=== PATIENT | male | born 1995 | race Two or more races ===

== ENCOUNTER 2020-06-21 15:10 | Emergency (ER) | payer MEDICAID, OTHER ==
[~2020-06-21] VITALS: Ht 175.3 cm; Wt 83.9 kg
[2020-06-21 16:09] VITALS: BP 124/72
== END 2020-06-21 16:58 | disposition home or self-care (01) ==
LOC: ER 15:10
DX: L08.9 Local infection of the skin and subcutaneous tissue, unspecified (principal); L81.8 Other specified disorders of pigmentation

== ENCOUNTER 2020-09-01 04:21 | Inpatient (IN) | payer MEDICAID ==
[~2020-09-01] VITALS: Ht 172.7 cm; Wt 84.2 kg
[2020-09-01 05:23] LABS: Urine Amorphous Crystal FEW /hpf (None Seen); Urine Bacteria NONE SEEN /hpf (None Seen); Urine Blood Negative /uL (Negative); Urine Specific Gravity 1.022 (1.001-1.035); Urine WBC <1 /hpf (0 - 3)
[2020-09-01 07:47] LABS: Basophils # (auto) 0.1 10 ^3/uL (0-0.2); Basophils % (auto) 0.5 % (0.0-2.0); Eosinophils # (auto) 0 10 ^3/uL (0-0.8); Eosinophils % (auto) 0.3 % (0.0-7.0); Hematocrit 43.8 % (41.0-53.0); Lymphocytes # (auto) 1.6 10 ^3/uL (0.4-5.4); Lymphocytes % (auto) 9.3 % (10.0-50.0); Mean Corpuscular Hgb Conc. 34.2 g/dL (32.0-36.0); Mean Corpuscular Volume 87.6 fL (80.0-100.0); Monocytes # (auto) 1.2 10 ^3/uL (0-1.3); Monocytes % (auto) 7.2 % (0.0-12.0); Neutrophils # (auto) 13.9 10 ^3/uL (1.6-8.6); Neutrophils % (auto) 82.7 % (37.0-80.0); Nucleated Red Blood Cells % 0.1 %; Red Cell Distribution Width 12.8 % (11.8-14.3); White Blood Cell 16.8 10^3/uL (4.4-10.8)
[2020-09-01 08:07] LABS: Albumin 3.7 g/dL (3.4-5.0); BUN/Creatinine Ratio 19.5; Calcium 9.1 mg/dL (8.5-10.1); Potassium 4.1 mmol/L (3.5-5.1)
[2020-09-01 08:10] LABS: Bilirubin, Total 0.2 mg/dL (0.2-1.0); Total Protein 7.9 g/dL (6.4-8.2)
[2020-09-01] MEDS ORDERED: SODIUM CHLORIDE 0.9% 1,000 ML IV ONE (08:15)
[2020-09-01] MEDS ORDERED: SODIUM CHLORIDE 0.9% 500 ML IVB ONE (08:15)
[2020-09-01] MEDS ORDERED: LACTATED RINGER'S 1,000 ML IV ONE (09:15)
[2020-09-01] MEDS ORDERED: LACTATED RINGER'S 1,000 ML IV SCH (09:15)
[2020-09-01] MEDS ORDERED: MORPHINE SULF INJ 2 MG/ML SYRINGE 1ML IV PRN ×2 (09:15)
[2020-09-01] MEDS ORDERED: NITROGLYCERIN 0.4 MG SL TAB SL PRN (09:15)
[2020-09-01] MEDS ORDERED: ONDANSETRON HCL 4 MG/2 ML VIAL IV PRN ×3 (09:15→17:00)
[2020-09-01] MEDS ORDERED: metroNIDAZOLE 500MG/100ML 100 ML IV ONE (09:30)
[2020-09-01] MEDS ORDERED: cefTRIAXone 1GM/50ML D5W 50 ML IV ONE ×2 (09:30)
[2020-09-01 09:55] LABS: Alcohol, Urine < 3.0 mg/dL (0-10); Amphetamine Screen, Urine NEGATIVE (NEGATIVE); Barbiturate Scree,Urine NEGATIVE (NEGATIVE); Benzodiazephine Screen, Urine NEGATIVE (NEGATIVE); Cannabinoid Screen, Urine NEGATIVE (NEGATIVE); Cocaine Screen, Urine NEGATIVE (NEGATIVE); Opiate Scree,Urine NEGATIVE (NEGATIVE); Phencyclidine Screen, Urine NEGATIVE (NEGATIVE)
[2020-09-01 09:58] LABS: INR 1.02 (0.9-1.15); Partial Thromboplastin Time 30.4 sec (23.0-31.2)
[2020-09-01] MEDS ORDERED: PANTOPRAZOLE 40 MG/10 ML VIAL INJ IV SCH (10:00)
[2020-09-01] MEDS ORDERED: metroNIDAZOLE 500MG/100ML 100 ML IV SCH (14:00)
[2020-09-01] MEDS ORDERED: SUCCINYLCHOLINE CHLORIDE 20 MG/ML 10ML VIAL IV ONE (15:24)
[2020-09-01] MEDS ORDERED: BUPIVACAINE W/ EPINEPH 0.25% INJ 50ML MDV ONE (15:46)
[2020-09-01] MEDS ORDERED: MIDAZOLAM HCL 1MG/1ML-2 ML VIAL ONE (15:51)
[2020-09-01] MEDS ORDERED: fentaNYL CITRATE 100 MCG/2 ML VL ONE (15:51)
[2020-09-01] MEDS ORDERED: LIDOCAINE 2% (LOCAL ANESTH.) PF 5ml SDV ONE (15:53)
[2020-09-01] MEDS ORDERED: ONDANSETRON HCL 4 MG/2 ML VIAL ONE (15:53)
[2020-09-01] MEDS ORDERED: PROPOFOL 10 MG/ML 20 ML IV ONE (15:54)
[2020-09-01] MEDS ORDERED: GLYCOPYRROLATE 0.2 MG/ML 1ML VIAL ONE (16:37)
[2020-09-01] MEDS ORDERED: ACETAMINOPHEN/CODEINE#3 (300/30mg) TAB PO PRN (16:45)
[2020-09-01] MEDS ORDERED: NEOSTIGMINE 1 MG/ML INJ (10mg/10ML VIAL) ONE (16:52)
[2020-09-01] MEDS ORDERED: HYDROmorphone HCL 2 MG/ML VL IV PRN ×2 (17:00)
[2020-09-01 17:48] VITALS: BP 126/77
[2020-09-01 17:51] VITALS: BP 126/77
[2020-09-01] MEDS: D5W/SOD CHL 0.45%/KCL 40MEQ 1,000 ML IV SCH (18:25)
[2020-09-01] MEDS: MORPHINE SULF INJ 2 MG/ML SYRINGE 1ML IV PRN (18:55)
[2020-09-01] MEDS: metroNIDAZOLE 500MG/100ML 100 ML IV SCH (21:58)
[2020-09-01 22:14] VITALS: BP 126/75
[2020-09-02] MEDS: D5W/SOD CHL 0.45%/KCL 40MEQ 1,000 ML IV SCH (04:18)
[2020-09-02 04:54] LABS: Basophils # (auto) 0 10 ^3/uL (0-0.2); Basophils % (auto) 0.3 % (0.0-2.0); Eosinophils # (auto) 0 10 ^3/uL (0-0.8); Eosinophils % (auto) 0.5 % (0.0-7.0); Hematocrit 41.7 % (41.0-53.0); Hemoglobin 14.4 g/dL (13.5-17.5); Lymphocytes # (auto) 1.2 10 ^3/uL (0.4-5.4); Lymphocytes % (auto) 17.4 % (10.0-50.0); Mean Corpuscular Hgb Conc. 34.6 g/dL (32.0-36.0); Mean Corpuscular Volume 86.7 fL (80.0-100.0); Monocytes # (auto) 0.5 10 ^3/uL (0-1.3); Monocytes % (auto) 6.9 % (0.0-12.0); Neutrophils # (auto) 5.2 10 ^3/uL (1.6-8.6); Neutrophils % (auto) 74.9 % (37.0-80.0); Nucleated Red Blood Cells % 0.1 %; Red Blood Cells 4.81 10^6/uL (4.5-5.90)
[2020-09-02 04:57] VITALS: BP 118/64
[2020-09-02 05:17] LABS: BUN/Creatinine Ratio 10.5; Calcium 8.7 mg/dL (8.5-10.1); Potassium 3.8 mmol/L (3.5-5.1)
[2020-09-02] MEDS: metroNIDAZOLE 500MG/100ML 100 ML IV SCH ×2 (05:28→13:57)
[2020-09-02 08:15] VITALS: BP 134/77
[2020-09-02] MEDS: MORPHINE SULF INJ 2 MG/ML SYRINGE 1ML IV PRN (08:57)
[2020-09-02] MEDS ORDERED: cefTRIAXone 1GM/50ML D5W 50 ML IV SCH ×2 (09:00)
[2020-09-02 09:18] VITALS: BP 134/77
[2020-09-02] MEDS ORDERED: PANTOPRAZOLE 40 MG/10 ML VIAL INJ IV SCH (10:00)
[2020-09-02] MEDS ORDERED: MULT-1018 PO (10:28)
[2020-09-02] MEDS ORDERED: MELA3TAB27 PO (10:28)
[2020-09-02] MEDS ORDERED: ACET325T82 PO (10:28)
[2020-09-02] MEDS ORDERED: ASPITAB87 OR (10:28)
[2020-09-02 13:00] VITALS: BP 124/74
[2020-09-02 15:16] VITALS: BP 124/74
[2020-09-02 17:17] VITALS: BP 128/70
== END 2020-09-02 18:00 | disposition home or self-care (01) | DRG 234 ==
LOC: ER 04:21 → OVERFLOW 09:03 → CENTRAL 17:37
PROVIDERS: ADMIT Nurse Practitioner Acute Care; ATTEND Internal Medicine
PROC: 0DTJ4ZZ Resection of Appendix, Percutaneous Endoscopic Approach (ICD-10-PCS; principal; 2020-09-01 15:49)
DX: K35.80 Unspecified acute appendicitis (principal); D72.829 Elevated white blood cell count, unspecified; F12.90 Cannabis use, unspecified, uncomplicated; F10.10 Alcohol abuse, uncomplicated; Z20.822 Contact with and (suspected) exposure to COVID-19; F19.10 Other psychoactive substance abuse, uncomplicated
CPT/HCPCS: 36415; 71045; 74177; 80048; 80053; 80307; 81001; 83605; 83690; 83735; 85025; 85610; 85730; 86850; 86900; 86901; 87081; 87426; 93005; 96361; 96365; 96366; 96368; 96375; C9113; G0378; J0330; J0696; J2001; J2250; J2405; J2704; J3490